=== PATIENT | male | born 1945 | race African-American/Black ===

== ENCOUNTER 2019-01-07 12:52 | Emergency (ER) | payer MEDICARE, OTHER ==
[~2019-01-07] VITALS: Ht 177.8 cm; Wt 85.0 kg
[2019-01-07] MEDS ORDERED: SODIUM CHLORIDE 0.9% 1,000 ML IV ONE ×2 (13:05→15:00)
[2019-01-07 13:43] LABS: HEMATOCRIT. 35.2 % (42.0-52.0); HEMOGLOBIN. 11.6 g/dL (14.0-18.0); MEAN CORPUSCULAR HEMOGLOBIN 31.7 pg (28.0-32.0); MEAN CORPUSCULAR VOLUME 95.7 fL (80.0-94.0); MEAN PLATELET VOLUME 9.4 fl (7.4-10.4); PLATELET 225 x1000/uL (130-400); RED BLOOD CELL COUNT 3.68 mill/uL (4.7-6.1); RED CELL DISTRIBUTION WIDTH 13.2 % (11.6-14.6)
[2019-01-07 13:46] LABS: CHLORIDE 106 mEq/L (98-107)
[2019-01-07 13:55] LABS: BETA HYDROXYBUTYRATE 0.3 mMol/L (0.0-0.3)
[2019-01-07 14:14] LABS: PARTIAL THROMBOPLASTIN TIME 22.2 sec (23.4-31.0)
[2019-01-07 14:35] LABS: CLARITY URINE CLEAR (CLEAR); COLOR URINE YELLOW (YELLOW); KETONES URINE TRACE (NEGATIVE); LEUKOCYTE ESTERASE URINE NEGATIVE (NEGATIVE); NITRITE URINE NEGATIVE (NEGATIVE); OCCULT BLOOD URINE NEGATIVE (NEGATIVE); PROTEIN URINE NEGATIVE (NEGATIVE); UROBILINOGEN URINE 0.2 E.U./dL (0.2-1.0)
[2019-01-07 14:45] LABS: PLATELET ESTIMATE NORMAL
[2019-01-07 17:08] VITALS: BP 129/69
== END 2019-01-07 17:10 | disposition home or self-care (01) ==
LOC: ER 12:52 → CANBEDREQ 16:54 → ER 17:10
DX: R55 Syncope and collapse (principal); E11.65 Type 2 diabetes mellitus with hyperglycemia; R42 Dizziness and giddiness
CPT/HCPCS: 36415; 71045; 80053; 81003; 82010; 83735; 83880; 84484; 85025; 85610; 85730; 93005; 96360; 96361; 99284; J7030